=== PATIENT | female | born 1990 | race Caucasian/White ===

== ENCOUNTER 2019-08-22 16:17 | Inpatient (IN) | payer BC, SELFPAY ==
[2019-08-22 16:29] VITALS: BP 96/59; PULSE 69; RESP 18; TEMP 36.8; O2SAT 98
--- NOTE | 2019-08-22 16:42 | W.ED.GENAD ---
Discharge Plan Disposition Patient Disposition: [facility] INPATIENT Discharge Details Chief Complaint: Orthopedic Clinical Impression: Closed fracture of shaft of right tibia and fibula Admit Date/Time: 08/22/19 18:50 Admit Provider: Camacho Elena Attending Provider: Camacho Elena Primary Care Provider: Hannah,[facility] ED Provider: Misael Saunders Medical Decision Making Patient is a 29-year-old female presents to the emergency department status post skiing injury. She has what appears to be a mid to tibia fracture deformity. X-rays/Ct scan confirm extensive comminuted, minimally displaced spiral fracture extending from the mid tibial diaphysis through the distal metaphysis. There is also a spiral fracture involving the proximal fibula. Discussed findings with the family and patient and she would prefer to have surgery here and not wait until going back to [place]. Call placed to Dr. Elena. He will accept patient in most likely perform surgery tomorrow. Patient placed in a posterior stirrup splint. HPI General Date/Time Provider Initiated Documentation: 08/22/19 16:33. HPI Narrative: Patient is a 29-year-old female who states that she had a low-speed fall while skiing. Her right ski stayed in place and she twisted her right leg. She states that she is had severe pain in the middle aspect of her mccullough since the fall. She is been unable to ambulate. She denies any numbness or tingling of the toes. No hip or knee pain. No other identifiable injuries. She denies any LOC or head injury. She was helmeted at the time of the fall. Related Data Allergies Allergy/AdvReac Type Severity Reaction Status Date / Time No Known Allergies Allergy Unverified 08/22/19 16:33 General Stated Complaint: Orthopedic JAYLEEN: 3 Review of Systems Constitutional Constitutional: Denies weakness ENT Ears, Nose, Mouth, and Throat: Denies neck pain Musculoskeletal Musculoskeletal: Denies back pain, Reports deformity, Denies joint swelling, Denies limited range of motion, Denies neck pain, Denies numbness and Denies tingling Neurologic Neurologic: Denies numbness, Denies sensory deficit, Denies tingling, Denies paresthesias and Denies weakness Hematologic/Lymphatic Hematologic/Lymphatic: Denies easy bleeding and Denies easy bruising [facility] Social History (Reviewed 08/22/19 @ 16:44 by JOANNA Almanza Smoking/Tobacco Use Status: Former Tobacco Use Drug use: Never Do you feel safe at home: Yes Exam Const General: cooperative, healthy appearing and comfortable Orientation: alert, awake and oriented x3 HENMT Head: normal to inspection, normocephalic and atraumatic General nose exam: external nose normal Neck Neck: normal visual inspection, full ROM and no lymphadenopathy Chest Chest: normal inspection of the chest and normal palpation of entire chest wall Resp Effort & Inspection: normal respiratory effort and able to speak in complete sentences Cardio Pulses: posterior tibial pulses present, dorsalis pedis pulses present and normal peripheral pulses GI Inspection: normal to inspection Skin Trauma: no lacerations or abrasions Neuro General: normal light touch, pain and propioception Extrem Right lower extremity: lower leg Details: tenderness Location: of the midshaft tibia, ecchymosis and deformity Location: of the mid lower leg Course Vital Signs Vital signs: Vital Signs Temperature 36.8 C 08/22/19 16:29 Pulse 69 08/22/19 16:29 Respiratory Rate 18 08/22/19 16:29 Blood Pressure 96/59 L 08/22/19 16:29 Pulse Oximetry 98 08/22/19 16:29 Temperature 36.8 C 08/22/19 16:29 Pulse 69 08/22/19 16:29 Respiratory Rate 18 08/22/19 16:29 Blood Pressure 96/59 L 08/22/19 16:29 Blood Pressure Position Supine 08/22/19 16:29 Pulse Oximetry 98 08/22/19 16:29 Oxygen Delivery Method Room Air 08/22/19 16:29 Oxygen Flow Rate 0 08/22/19 16:29 Pain Level 5 08/22/19 16:29 Procedures Orthopedic Splinting/Casting Injury #1: Side: right Lower Extremity Injury Location: lower leg Lower Extremity Immobilizer: posterior splint and stirrup splint
[2019-08-22] MEDS: HYDROmorphone 2 MG/ML VIAL 0.5 MG IVP ×3 (16:57→18:38)
[2019-08-22] MEDS: Ondansetron 4 MG/2 ML VIAL IVP (16:58)
--- NOTE | 2019-08-22 17:18 | DI.RAD_ITS ---
EXAM: XR TIB/FIB RT INDICATION: severe mid tib pain s/p fall. NV intact. COMPARISON: No exams were available for comparison TECHNIQUE: 2D digital imaging was performed. FINDINGS: There is a mildly displaced fracture of the proximal fibula. There is a comminuted spiral fracture o f the mid to distal tibia which shows mild displacement but no significant angulation. The ankle mor tise does not appear widened. No talar dome defect is seen. There is no definite extension of the d istal tibial fracture to the articular surface. There is no gross evidence of a distal femoral or ti bial plateau fracture. IMPRESSION: Mildly displaced spiral fracture of the mid to distal tibia. Proximal fibular fracture.
--- NOTE | 2019-08-22 17:37 | DI.VRAD_ITS ---
PROCEDURE INFORMATION: Exam: XR Right Tibia and Fibula Exam date and time: 08/22/2019 5:19 PM Age: 29 years old Clinical indication: Injury or trauma; Fall; Initial encounter; Fracture, stress and fracture, traumatic; Fibula and tibia; Right; Other: Not specified; Additional info: Skiing accident, PT was in cardboard/styrofoam stabilizing device TECHNIQUE: Imaging protocol: XR Right tibia and fibula. Views: 2 views. COMPARISON: No relevant prior studies available. FINDINGS: Bones/joints: Spiral fracture through the proximal fibular diaphysis with mild 2-3 mm lateral and ventral displacement of the distal fracture fragment. Extensive comminuted spiral fractures extending from the mid tibial diaphysis through distal metaphysis without evidence of intra-articular extension. There is mild 2-3 mm dorsal displacement of the distal fracture fragments. Joint spaces are maintained. Soft tissues: Normal. IMPRESSION: 1. Extensive comminuted, minimally displaced spiral fractures extending from the mid tibial diaphysis through distal metaphysis without evidence of intra-articular extension. 2. Spiral fracture through the proximal fibular diaphysis with mild 2-3 mm lateral and ventral displacement of the distal fracture fragment. Dictated and Authenticated by: Sarthak Marion MD. Ordering:JUAN ALBERTO Douglas MD
[2019-08-22] MEDS: diazePAM 10 MG/2 ML SYR 2.5 MG IVP (17:44)
--- NOTE | 2019-08-22 19:06 | DI.CT_ITS ---
EXAM: CT LOWER EXTREMITY RT WO CLINICAL HISTORY: Comminuted tib/fib fracture TECHNIQUE: Noncontrast. The knee and proximal tibia and fibula are not included on the exam. Image s were performed from the upper tibia and fibula through the ankle. COMPARISON: XR TIB/FIB RT from 08/22/2019 FINDINGS: There is a comminuted spiral fracture through the mid to distal tibia. There is mild displacement o f fracture fragments without significant angulation. There is no visible extension to the articular surface. The distal tibia and talar dome appear intact. No hematoma is seen. IMPRESSION: Comminuted spiral fracture of the mid to distal tibia without intra-articular extension.
--- NOTE | 2019-08-22 19:25 | OCONE_ITS ---
Date of service: 08/22/19 Time of Service: 19:25 History of Present Illness History of Present Illness Chief Complaint: Right leg pain because of fracture Narrative: Is a 29-year-old white female who was visiting from the [place] area and skiing at [employer] this afternoon when she had a low velocity fall. She basically her ski caught and twisted out and she fell over onto the snow. She had immediate severe pain from the mid tibia down. She was placed in a cardboard box splint on the [place] and transferred to [facility]. At [facility] she was found to be neurovascular intact. There were no breaks in the skin. X-rays of the tibia showed a comminuted but well aligned fracture of the right tibia begins at midshaft and extends distally ending the fibula is mildly comminuted and fractured about 3 inches from the proximal and. No significant angulation is seen. Patient was advised that she could be splinted and go back home to [place] for definitive treatment with a closed intramedullary nailing of the tibial fracture. She preferred to stay and have it done here at [facility] by me. I discussed with her the indications for the surgery the risk and complications of the procedure and expected postoperative course. I felt that she needed a preoperative CT scan of the distal tibia to make sure that fracture does not extend to the articular surface of the distal tibia. If it does extend to the articular surface would have to plan to fix that fracture first before nailing. Assessment and Plan Assessment and plan (1) Closed fracture of shaft of right tibia and fibula: Status: Acute Assessment and plan: Assessment: Closed fracture right tibia and fibular shafts. The tibial fracture starts mid tibia and ends proximal to the ankle joint. There is no extension of the fracture into the ankle joint. Fracture is well aligned and not shortened. There is fair amount of comminution. This fracture needs closed intramedullary nailing with proximal and distal locking as optimal treatment. I discussed this with Bere as well as risks and co mplications expected postoperative course. She wants to proceed tomorrow to do this. Plan: Today in the ER remove the block splint and applied a stockinette to the right leg. I then placed her in a Aircast fracture walking brace to splint the fracture. I written admission orders for pain management tonight. Would plan on proceeding with a closed intramedullary nailing of her fracture right tibia tomorrow under general anesthesia. Review of Systems Narrative: She takes no medications. She has no known allergies. Said no prior surgeries. All systems reviewed & are unremarkable except as noted in HPI and below PFSH Social History Smoking/Tobacco Use Status: Former Tobacco Use Drug use: Never Do you feel safe at home: Yes Exam Narrative Exam Narrative: No breaks in the skin are noted in the right leg. On clinical inspection the leg looks aligned. Her right foot is warm and sensate. She has good dorsalis pedis and posterior tibial pulses. She has normal sensation to her toes. She can actively move her toes fully on command. AP and lateral x-rays of the right tibia are obtained. The fractures are well aligned. There is no significant angulation seen. There is no shortening seen. The tibial fracture is comminuted starting about mid tibia just below the isthmus. Probably an inch and a half proximal to the ankle joint the fracture ends based upon the my interpretation of the plain films. Fibula is fractured proximally about 3 inches from the proximal tip of the fibula. CT scan is obtained of the right lower leg.. The CT scan confirms my interpretation of the plain films. The fracture exits posteriorly probably an inch or more proximal to the ankle joint. There is no extension of the fracture lines into the ankle joint. No shortening no significant angulation seen. Results Last Vital Signs Temp 36.8 C 08/22/19 16:29 Pulse 69 08/22/19 16:29 Resp 18 08/22/19 16:29 BP 96/59 L 08/22/19 16:29 Pulse Ox 98 08/22/19 16:29
--- NOTE | 2019-08-22 19:29 | DI.VRAD_ITS ---
PROCEDURE INFORMATION: Exam: CT Right Lower Extremity Without Contrast; Lower Leg Exam date and time: 08/22/2019 7:07 PM Age: 29 years old Clinical indication: Other: Comminuted tib/fib fracture TECHNIQUE: Imaging protocol: CT of the Right lower extremity without contrast was performed. Exam focused on the lower leg. COMPARISON: XR TIB/FIB RT 08/22/2019 5:18 PM FINDINGS: Bones/joints: Known proximal fibular fracture is beyond the field of view. Comminuted transverse and spiral fracture through the mid-tibial diaphysis and extending through the posterior and medial aspect of the distal tibial metaphysis with cortical disruption along the tibiofibular syndesmosis. The proximal transverse fracture components extend through both the medial and lateral cortex. There is minimal displacement and no significant angulation of the comminuted fracture fragments. A single small intramedullary fracture fragment is identified (series 4, image 75). No intra-articular extension. No definite widening across the tibiofibular syndesmosis. Ankle joint is maintained. Soft tissues: Normal. IMPRESSION: 1. Transverse and spiral fracture of the mid-tibial diaphysis through distal metaphysis with cortical disruption along the tibiofibular syndesmosis but no intra-articular extension across the tibial plafond. There is minimal displacement and no significant angulation of the comminuted fracture fragments. 2. No definite widening across the interosseous membrane. Ankle joint is maintained. 3. Known proximal fibular fracture is outside the field of view. Dictated and Authenticated by: Sarthak Marion MD. Ordering:JUAN ALBERTO Douglas MD
[2019-08-22 19:44] VITALS: BP 115/55; PULSE 78; TEMP 37.5; O2SAT 96
[2019-08-22 20:18] VITALS: BP 117/67; PULSE 83; RESP 18; TEMP 37.7; O2SAT 93
[2019-08-22] MEDS: DEXTROSE 5%-0.9% SALINE 1,000 ML 60 ML IV (20:57)
[2019-08-22] MEDS: Normal Saline Flush 10 ML SYR IVP ×2 (20:57→21:23)
[2019-08-22] MEDS: oxyCODONE-CR 10 MG TABCR PO (20:58)
[2019-08-22] MEDS: MORPHine 10 MG/ML VIAL IVP (21:17)
[2019-08-22] MEDS: Ketorolac 30 MG/ML VIAL IVP (21:18)
[2019-08-22 23:17] VITALS: BP 109/68; PULSE 92; RESP 17; TEMP 37.2; O2SAT 99
[2019-08-23] VITALS (13 sets, daily range): BP systolic 94–106; BP diastolic 57–75; PULSE 58–83; RESP 12–18; TEMP 36.6–37.7; O2SAT 94–100
[2019-08-23] MEDS: Normal Saline Flush 10 ML SYR IVP ×5 (00:50→23:48)
[2019-08-23] MEDS: MORPHine 10 MG/ML VIAL IVP ×2 (00:50→07:16)
[2019-08-23] MEDS: Ketorolac 30 MG/ML VIAL IVP ×4 (03:37→23:47)
[2019-08-23 08:00] LABS: HCT 37.4 % (36.0-46.0); HGB 12.3 g/dL (12.0-15.5); Mean Corp. HGB Concentration 32.9 g/dL (32.0-36.0); Mean Corpuscular Hemoglobin 30.8 pg (27.0-33.0); Mean Corpuscular Volume 93.7 fL (80-95); Mean Platelet Volume 9.9 fL (8.0-11.0); Platelet Count 305 x1000/uL (130-400); RBC 3.99 m/cumm (4.00-5.20); RBC Distribution Width 11.6 % (11.7-14.6)
[2019-08-23 08:20] LABS: HCG Qual (Urine) Negative
--- NOTE | 2019-08-23 09:14 | PDOC.CMIN ---
- If Service Date Differs Date of service: 08/23/19 Time of Service: 09:14 Care Management Initial Assess REASON FOR HOSPITALIZATION:: Fracture of the right tibia and fibula closed PAST MEDICAL HISTORY/PAST SURGICAL HISTORY:: No significant past medical history PREVIOUS FUNCTIONAL STATUS/SOCIAL/FAMILY SUPPORTS:: Per significant other patient is independent with ADLs, transportation, and has family support. Bere was in [place] for a ski trip, when she was injured. CURRENT FUNCTIONAL STATUS:: Bere is currently in the OR having repair of her fractured tibia and fibia. CM met with significant other in the room, will need to follow-up with patient when she returns from the OR. ADVANCE DIRECTIVES:: Not on file-we will offer forms once patient returns from the OR and is medically stable Has patient been provided with information about the portal?: No Did the patient sign up for the portal?: No CODE STATUS:: Full Code INSURANCE COVERAGE / FINANCIAL ISSUES:: [facility] CURRENT HOME/COMMUNITY SERVICES/EQUIPMENT:: None at this time PRIMARY CARE PHYSICIAN:: No current provider local or in [place], will establish care with orthopedic provider in [place] and will need all records faxed to practice. PATIENT/FAMILY EDUCATION NEEDS:: Discharge education, limitations, follow-up plan of care, asked me 3 and self-management. ANTICIPATED BARRIERS TO DISCHARGE:: None identified at this time TRANSPORTATION:: Via private car with significant other at time of discharge PLAN:: Bere is in the OR at time of CM's visit for repair of tib and fib fracture. Significant other states that they will transport back to [place] when she is medically cleared. Needs to be determined, significant other will provide name of a provider in [place] to have records faxed to. CM to continue to provide support discharge planning to patient and family.
[2019-08-23] MEDS: Lactated Ringers 1,000 ML 30 ML IV ×2 (12:40→15:00)
--- NOTE | 2019-08-23 13:58 | DI.RAD_ITS ---
EXAM: XR TIB/FIB RT CLINICAL HISTORY: RIGHT TIB/FIB FX. TECHNIQUE: 2D and realtime digital imaging was performed. Fluoroscopy was provided in the OR for Dr Lis Elena. COMPARISON: XR TIB/FIB RT from 08/22/2019 FINDINGS: Hard copy images show placement of an intramedullary denise through the tibia for fracture fixation. Fluoro Time: 246.2 seconds
[2019-08-23] MEDS: Bupivacaine 0.5% Pres-Free 30 ML VIAL (15:06)
--- NOTE | 2019-08-23 15:19 | DI.RAD_ITS ---
EXAM: XR TIB/FIB RT INDICATION: Check reduction and hardware post-op in RR. COMPARISON: XR TIB/FIB RT from 08/22/2019 TECHNIQUE: 2D digital imaging was performed. FINDINGS: An intramedullary denise is seen through the tibia for fracture fixation. The fracture alignment is yobani tomic. The proximal fibular fracture shows improved alignment. There is no ankle mortise widening. There is residual postsurgical air in the soft tissues. A posterior splint is in place.
--- NOTE | 2019-08-23 16:23 | PT.INNT ---
Date of service: 08/23/19 Time of Service: 16:23 PT Notes Visit Reasons: FRACTURE R TIBIA AND FIBULA,CLOSED Referral received on 08/23/2019 for physical therapy evaluation and management of this 29-year-old patient S/P closed IM nailing of L mid tibial shaft and fibular fracture. Patient is still in the PACU and will be evaluated first thing tomorrow morning as ordered. Thank you very much for this referral. Renetta Card PT, DPT, CLT [facility] In[facility] at [facility]
--- NOTE | 2019-08-23 17:20 | ROE_ITS ---
DATE OF PROCEDURE: August 23, 2019 PREOPERATIVE DIAGNOSIS: Closed fracture of the right tibia and fibula shafts. POSTOPERATIVE DIAGNOSIS: Same. PROCEDURE: Closed locked intramedullary nailing fracture left tibial shaft. ANESTHESIA: General, Cirilo Rg CRNA SURGEON: Camacho Elena M.D. SIDE DOOR WORKER: Micheal Delgado INDICATIONS: This is a 29-year-old white female from [place] who sustained a comminuted closed fracture of the right tibia and fibula shafts yesterday in a ski accident at [facility]. She was seen in the Emergency Room and evaluated and I was consulted. I obtained a CT scan that confirmed t hat the fracture did not extend to the articular surface of the ankle. I recommended closed intramed ullary nailing of her fracture as optimum treatment. The risks and complications of the procedure we re explained to the patient in detail preoperatively and she wished to have me proceed today with the surgery. She is anxious to travel back home to the [place] area. PROCEDURE: The patient was taken to the operating room on 08/23/2019. She was placed supine on the o perating table and a general anesthetic was administered. A roll was placed under her right hip and the right lower extremity was prepped from mid-thigh to toes and draped free in the usual sterile fas hion. The leg was flexed on a bone foam pillow in preparation for so-called semi-extended nailing pr [place]. An incision was made beginning at the superior pole of the patella lateral and carried down on the la teral side of the patellar tendon to the tibial tubercle. Subcutaneous bleeders were cauterized. I then incised the retinaculum and length of the incision. I used an elevator to help me gain access t o the retro patellar tendon space. With C-arm image intensification guidance, I was able to position a guidewire at the appropriate starting point for an IM nailing. The guide pin was placed at the le hieu of the lateral tibial spine on the AP view and on the lateral view it was parallel to the anterio r cortex of the tibia. One-stop reamer was then used over the guide pin to ream for the proximal por tion of the nail. A flexible guide pin, bulb-tipped, was then passed down the tibial shaft across th e comminuted fracture fragments and down to the distal epiphyseal scar of the tibia. Good position i n the medullary canal was confirmed on both AP and lateral views with the C-arm. At this point seria l reaming was performed up to 11 mm diameter for passage of a 9 mm diameter nail. The guide pin was measured and 315 mm length was found to be the appropriate length for the nail. The aiming device wa s attached to the nail and the nail was then inserted over the guidewire across the fracture site and down to the distal epiphyseal scar of the tibia. The C-arm was utilized to visualize the fracture a s the nail was passed through the fracture site and the comminuted pieces. None of the pieces displa laney. The guide pin was removed. Using the aiming arm for the nail, two proximal screws were inserte d for proximal locking. Two screws were inserted distally using a freehand technique, one from anter ior to posterior and one from medial to lateral. The incisions were irrigated with saline solution a nd then they were infiltrated with 0.5% Marcaine solution. The distal stab wounds for the interlocking screws were approximated with subcuticular #4-0 Monocryl. The stab wounds for the proximal interlocking screws were also closed with subcu Monocryl and Steri -Strips. There was a small laceration of the synovium that occurred during the initial exposure and this was closed with a running interlocked #3-0 Vicryl suture material. The retinaculum was repaired with a running interlocked #2-0 Vicryl suture. The skin and subcu were then approximated with a sub cuticular suture of #4-0 Monocryl, supplemented with Steri-Strips. The wound was dressed with Xerofo rm gauze, sterile gauze 4x4's, ABD pad was placed over the lateral knee incision and was held in plac e with a 4-inch Kerlix. I then applied a Harry compressive dressing from toes to about mid-thigh. I then applied over the Harry compressive dressing a posterior fiberglass splint that ended just proxi mal to the knee to allow flexion of the knee. The splint was applied with 6-inch RUSSELL bandages. The patient's anesthesia was reversed without complications. Estimated blood loss was 75 cc's. The renae ent tolerated the procedure well and was discharged to recovery in good condition.
[2019-08-23] MEDS: DEXTROSE 5%-0.9% SALINE 1,000 ML 125 ML IV (17:27)
[2019-08-23] MEDS: oxyCODONE-CR 10 MG TABCR PO (19:59)
[2019-08-24] MEDS: DEXTROSE 5%-0.9% SALINE 1,000 ML 125 ML IV ×2 (01:12→10:12)
[2019-08-24 04:05] VITALS: BP 96/58; PULSE 54; RESP 16; TEMP 36.8; O2SAT 100
[2019-08-24] MEDS: Normal Saline Flush 10 ML SYR IVP ×3 (06:11→18:23)
[2019-08-24] MEDS: Ketorolac 30 MG/ML VIAL IVP ×3 (06:11→18:22)
[2019-08-24] MEDS: Acetaminophen 325 MG TAB 650 MG PO (07:37)
[2019-08-24] MEDS: oxyCODONE-CR 10 MG TABCR PO ×2 (07:39→19:42)
[2019-08-24 08:04] VITALS: BP 102/55; PULSE 64; RESP 18; TEMP 37.1; O2SAT 99
[2019-08-24 11:07] VITALS: BP 100/64; PULSE 65; RESP 20; TEMP 36.5; O2SAT 99
--- NOTE | 2019-08-24 11:48 | IN_ITS ---
Date of service: 08/24/19 Time of Service: 09:18 PT Notes Visit Reasons: FRACTURE R TIBIA AND FIBULA,CLOSED Physical Therapy Inpatient Initial Evaluation Date: 08/24/2019 Referring Doctor: Camacho Elena M.D. PT Orders: PT CONSULT: s/p ortho surgery Precautions: Fall. Standard. Activity as tolerated. FWB as tolerated R leg. Patient Profile/Admitting Diagnosis: Pt is a 29-year-old female that presented to the ER following a low velocity fall while [place]. She was diagnosed with a closed transverse and spinal fracture of the mid-tibial diaphysis through the distal metaphysis of the tibia and mildly displaced spiral fracture of the mid to distal tibia. Pt presents status post closed locked IMN on post operative day 1. 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 Railings on both sides of the stairs, however, notes that the stairs are wide. notes that they are able to stay with his parents on the first floor if necessary. Equipment Owned/DME: None Subjective: Pt reports that she is feeling good and only experiencing a small amount of pain, but had received her medication prior to her PT evaluation. Yobani connolly reports that they have a [address] home and the pt will be able to ride with her leg propped up. Objective: General Observation: IV line in RUE. Mental Status: alert and oriented x 4 Pain: 2/10 at rest ROM: Right Upper Extremity: Shoulder Flexion WFL. Shoulder abduction WFL. Elbow flexion WFL. Wrist flexion WFL. Opening and closing of hand WFL. Left Upper Extremity: Shoulder Flexion WFL. Shoulder abduction WFL. Elbow flexion WFL. Wrist flexion WFL. Opening and closing of hand WFL. Right Lower Extremity: Hip flexion WFL. Hip abduction WFL. Knee flexion NT. Ankle dorsiflexion NT. Ankle plantarflexion NT. Left Lower Extremity: Hip flexion WFL. Hip abduction WFL. Knee flexion WFL. Ankle dorsiflexion WFL. Ankle plantarflexion WFL. Strength: Right Upper Extremity: Shoulder flexors 4+/5. Shoulder abductors 5/5. Elbow flexors 5/5. Elbow extensors 5/5. Cold Rolling Machine Setter strong. Left Upper Extremity: Shoulder flexors 4+/5. Shoulder abductors 5/5. Elbow flexors 5/5. Elbow extensors 5/5. Cold Rolling Machine Setter strong. Right Lower Extremity: Hip flexors 3-/5. Hip abductors 3-/5. Knee flexors 3-/5. Knee extensors 3-/5. Ankle dorsiflexors 3-/5. Ankle plantarflexors 3-/5. Left Lower Extremity: Hip flexors 5/5. Hip abductors 5/5. Knee flexors 5/5. Knee extensors 5/5. Ankle dorsiflexors 5/5. Ankle plantarflexors 5/5. Sensation: Intact as to pain and pressure on bilateral lower extremities. Bed Mobility/Transfers: Rolling SBA Supine to sit SBA Sit to supine SBA Sit to stand CGA Stand to sit CGA Bed to chair CGA Chair to bed CGA Gait: Pt was able to ambulate 50 feet WBAT using a front-wheeled walker. CGA by PT with wheelchair follow of PT student. Pt required four standing rest breaks and required one seated rest break due to fatigue in leg and increased pain. She was able to ambulate 5 feet + 30 feet WBAT using bilateral axillary crutches. CGA by PT and wheelchair follow by pt?s . Balance: Static Sitting: Normal Dynamic Sitting: Normal Static Standing: Fair Dynamic Standing: Fair Special Tests: Mobility Limitations Standardized Measure [facility] AM-PAC 6 clicks Basic Mobility Inpatient Short Form: Raw Score: 20 CMS Score: 36% deficit Informed Consent/Education: Patient instructed in purpose of PT consult and plan of care. Assessment: Pt is a 29-year-old female that presented to the ER following a low velocity fall while [place]. She was diagnosed with a closed transverse and spinal fracture of the mid-tibial diaphysis through the distal metaphysis of the tibia and mildly displaced spiral fracture of the mid to distal tibia. Pt presents status post closed locked IMN. She presents with impairment level findings with functional limitations. She initially appeared to be apprehensive about putting weight onto her R LE and gradually began to apply more weight as she gained confidence with walking with the axillary crutches. Pt would continued to benefit from skilled physical therapy for transfer into and out of a vehicle, gait training and stair negotiation to improved functional mobility and facilitate a smooth transition to home. Patient presents with clinical signs and symptoms consistent with current/admitting diagnoses that have resulted to mobility limitations, gait instability, generalized weakness, and impairment of motor control as demonstrated by the following impairment level findings: 1. Decreased strength to R LE major muscle groups 2. Impaired standing balance 3. Impaired activity tolerance 4. Limitation of joint range of motion in R LE Impairments are contributing to the following functional limitations: 1. Dependent bed mobility skills 2. Increased dependence with transfers 3. Inability to safely ambulate without assistive device and physical assistance 4. Increase completion time for mobility ADL performance 5. Increased fall risk 6. Inability to negotiate steps alone safely Patient is assessed [place] a [id number] moderate complexity based on the following: History: Pt is a 29-year-old female that presented to the ER following a low velocity fall while [place]. She was diagnosed with a closed transverse and spinal fracture of the mid-tibial diaphysis through the distal metaphysis of the tibia and mildly displaced spiral fracture of the mid to distal tibia. Pt presents status post closed locked IMN. She presents with impairment level findings and functional limitations. AM-PAC raw score of 20 with 36% deficit. Examination: Demonstrable impairment in strength, balance, and range of motion with underlying impairments and functional limitations as documented above Presentation: Evolving Decision Makin moderate complexity Goals: Goals X1 week 1. Supine-Sit independent 2. Sit-Supine independent 3. Sit-Stand independent 4. Stand-Sit independent 5. Bed-Chair independent 6. Chair-Bed independent 7. Independent gait on level surface with use of least restrictive device for at least 300 feet without report of pain nor dyspnea 8. Min A stair negotiation while holding onto unilateral rail and Min A by for at least 15 steps without report of increased pain nor dyspnea 9. Independent with home exercise program 10. Good static and dynamic standing balance/tolerance Plan of Care/Treatment Plan: 1-2x/day, 7 days/week x 1 week. Plan of care has been reviewed with the FINANCIAL REPORTING ANALYST providing the service under Physical Therapy direction. Initiate Physical Therapy intervention for strengthening, bed mobility, transfers, gait, stairs, balance training, use of assistive device. DISCHARGE RECOMMENDATIONS: Discharge to home when medically cleared with recommendations for outpatient physical therapy for improved mobility, strength, and balance. Recommend use of bilateral axillary crutches for negotiation of sta irs and front-wheeled walker for ambulation in the home. TREATMENT CODE/TIME: 33786 x 45 minutes beginning at 9:18 A.M. Thank you very much for this referral. Akila Couch, SPT Doctor of Physical Therapy Student [facility] Supervision provided by: Renetta Card PT, DPT, CLT [facility] [place], [place]
--- NOTE | 2019-08-24 13:30 | PT.INTREAT ---
Date of service: 08/24/19 Time of Service: 13:30 PT Notes Visit Reasons: FRACTURE R TIBIA AND FIBULA,CLOSED 08/24/19 SUBJECTIVE: Pt stating she is doing okay this afternoon. She is anxious to try the stairs. She plans on leaving early tomorrow morning for their [address] OBJECTIVE: Supine in bed. Agreeable to PT treatment. TRANSFERS Supine to sit: I Sit to supine: I Sit to stand: SBA Stand to sit: SBA GAIT Device: Bilateral axillary crutches Weight bearing: WBAT R LE Assist: CGA Distance: 50'x2 Deviation: Stand rest break 2 x due to UE fatigue. STAIR: 1 flight up and down, 1 rail, 1 axillary crutch, CGA ASSESSMENT: Good tolerance to stair management this afternoon. She is more confident with her crutches and I fit her with a pair to take with her tomorrow morning. Both her and her feel confident to be able to get into their apartment when they get home. PLAN: Continue per PT's POC. Treatment time: 23' [id number] Kassidy Johnson, SPECIALIST ICU
--- NOTE | 2019-08-24 14:01 | PHARADMIT ---
Admission Pharmacy Clinical Review fracture R tibia and fibula, closed Code Status Full Code Current Weight 56.699 kg Renally Cleared and Narrow Therapeutic Index Meds no labs QTc Value / Action Taken none BP Control, Fever BP 100/64 afebrile Electrolytes reviewed no labs DVT Prophylaxis none Opiate Usage / Scheduled Bowel Regimen Ordered dave and prn/none Plt/SCr for Heparin / Enoxaparin plt 305 SCr-no labs INR for Warfarin n/a H/H stable, WBC/Bands h/h 12.3/37.4 wbc 11 Antibiotic appropriateness none Cultures and Sensitivities none Surgical ABX d/c within 24 hr yes DM control / Insulin Dosing not done Heart Failure (Check EF%) (RUSSELL's, B-Block, Diuretics) none IV to PO Switch n/a Home Meds Reviewed no home meds listed Home Meds Not Ordered no home meds listed Comments
--- NOTE | 2019-08-24 14:37 | PGE_ITS ---
Date of Service Date of service: 08/24/19 Time of Service: 14:37 Assessment and Plan Assessment and plan (1) Closed fracture of shaft of right tibia and fibula: Status: Acute Assessment and plan: Assessment: Stable and progressing well at 24 hours postop closed intramedullary nailing of a fracture of the right tibia. I think she should be ready to travel back home to [place] tomorrow. She will get some more therapy this afternoon with PT to go up and down stairs. We will get another session on the stairs tomorrow morning to help with her mobility. Plan: DC IV fluids. We will leave the IV in as a half In case she needs additional IV meds. We will continue with the Toradol and OxyContin. Plan discharge home tomorrow morning. Should have DVD with her x-rays on it to take with her for when she follows up with a local orthopedic surgeon in the [place] area. Subjective Subjective Patient reports: feels better and pain is less Interval history since last seen: She says she feels good. She is not had to take any pain medicines other than scheduled medicine as part of her multimodal pain control. She has been up out of bed with PT and actually walked down to the end of the second floor hallway and back. She has not done stairs yet. Says she has 3 flights of stairs to climb to get to her apartment in [place]. She like to be a little bit more mobile with crutches before going home. Only mild amount of pain. Denies any numbness in her toes. Exam Narrative Exam Narrative: She is afebrile vital signs stable. Toes of her right foot are pink and warm. She is able to actively flex and extend her toes without difficulty and without pain. She has good sensation to the toes of her right foot. She has been out of bed with PT and is walked to the into the hallway on the second floor and back. There is supposed to try her on stairs later today. She is not taken any pain medicines other than the scheduled Toradol and OxyContin. She is eating and drinking well. Objective Objective Clinical Data: Vital Signs Temperature 36.5 C 08/24/19 11:07 Temperature Source Tympanic 08/24/19 11:07 Pulse 65 08/24/19 11:07 Pulse Rhythm Regular 08/24/19 07:55 Respiratory Rate 20 08/24/19 11:07 Respiratory Effort 08/24/19 07:55 Respiratory Depth Normal 08/24/19 07:55 Respiratory Pattern Normal 08/24/19 07:55 Blood Pressure 100/64 08/24/19 11:07 Blood Pressure Position Supine 08/22/19 16:29 Pulse Oximetry 99 08/24/19 11:07 Respiratory End-tidal CO2 42 08/23/19 15:56 Oxygen Delivery Method Room Air 08/24/19 11:07 Oxygen Flow Rate 0 08/24/19 11:07 Pain Level 2 08/24/19 12:42 Intake & Output 08/23/19 08/24/19 08/24/19 23:59 11:59 23:59 Intake Total 3070 / 3070 2118.75 / 2358.75 240 / 2358.75 Output Total 375 / 875 Balance 2695 / 2195 2118.75 / 2358.75 240 / 2358.75 Intake: IV 2270 / 2270 1968.75 / 1968.75 Oral 800 / 800 150 / 390 240 / 390 Output: Urine 300 / 800 Estimated Blood Loss 75 / 75 Other: Urine Color Yellow Urine Appearance Clear Urine Odor Normal Comment VOIDED QS IN PACU Emesis Description None Voiding Methods Bedside Commode Bedside Commode Bedside Commode Laboratory Results WBC 11.00 k/cumm (4.4-10.8) H 08/23/19 07:45 RBC 3.99 m/cumm (4.00-5.20) L 08/23/19 07:45 Hgb 12.3 g/dL (12.0-15.5) 08/23/19 07:45 Hct 37.4 % (36.0-46.0) 08/23/19 07:45 MCV 93.7 fL (80-95) 08/23/19 07:45 MCH 30.8 pg (27.0-33.0) 08/23/19 07:45 MCHC 32.9 g/dL (32.0-36.0) 08/23/19 07:45 RDW 11.6 % (11.7-14.6) L 08/23/19 07:45 Plt Count 305 x1000/uL (130-400) 08/23/19 07:45 MPV 9.9 fL (8.0-11.0) 08/23/19 07:45 Urine HCG, Qual Negative 08/23/19 07:49
--- NOTE | 2019-08-24 15:08 | W.NUTCONSULT ---
Date of service: 08/24/19 Time of Service: 15:08 Nutritional Consult ASSESSMENT: 29 year old female with ski accident leading to closed fracture of tibia and fibia. Following regular meal plan with adequate intake. BMI wnl. Not considered at nutritiona risk. Time Spent in Nutritional Counseling and Treatment: 0 time spent face to face
--- NOTE | 2019-08-24 15:24 | CHAPLAIN ---
Bere was resting in bed and her boyfriend was with her when I visited. She told me about her skiing accident and her boyfriend driving her to the ER. She had surgery yesterday. She expects to go home, back to [place] tomorrow. Their truck (of van) is outfitted in the back for sleeping as they often stay in there instead of in hotels when traveling. 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 Bere said all the staff members she has met at [facility] have been very kind and she complimented the care she has received.
--- NOTE | 2019-08-24 15:42 | PDOC.CMPRO ---
- If Service Date Differs Date of service: 08/24/19 Time of Service: 15:42 Care Management Progress Note S/O: Bere was sitting up in her bed when CM met with her. She was pleasant and engaged in conversation. She reported that her pain has been well controlled. She reported that she does not have a local (to her) PCP, but her made a suggestion to refer her to his PCP office. CM called and spoke with [facility], who stated that as she is not yet a patient, we could not fax documents, and they could not refer her to a local Ortho either. CM told the pt, and supplied her with the fax number if they need to send her paperwork to sign. Bere and her also expressed that they have a [address] which they are nervous about and would like to leave early in the day if possible. PT will be working with her to maneuver stairs easier this afternoon and tomorrow morning prior to discharge. CM initiated set up for the Portal, at Bere's request. CM will continue to follow. A: Bere is a 29 year old female admitted to [facility] on 08/22/2019 with a Fractured R Tibia and Fibula. P: Bere has had her Tibia and Fibula fracture repaired by Dr. Elena. Anticipate she will return home to [place] when cleared by MD and PT. She will follow up with a new local PCP and Ortho in [place]. CM will fax records to her new PCP, once requested. Her will drive her home via private vehicle. She is agreeable to the plan. CM will continue to follow.
[2019-08-24 18:18] VITALS: BP 102/64; PULSE 70; RESP 18; TEMP 36.7; O2SAT 98
[2019-08-24 23:39] VITALS: BP 105/67; PULSE 67; RESP 17; TEMP 37.2; O2SAT 97
[2019-08-25 00:05] VITALS: BP 113/72; PULSE 75; RESP 16; TEMP 37.5; O2SAT 95
[2019-08-25 03:50] VITALS: BP 98/61; PULSE 69; RESP 16; TEMP 37.2; O2SAT 95
[2019-08-25] MEDS: Ketorolac 30 MG/ML VIAL IVP ×2 (06:46)
[2019-08-25] MEDS: Normal Saline Flush 10 ML SYR IVP ×2 (06:47)
[2019-08-25 07:35] VITALS: BP 112/70; PULSE 66; RESP 20; TEMP 37.2; O2SAT 95
[2019-08-25] MEDS: oxyCODONE-CR 10 MG TABCR PO (07:59)
--- NOTE | 2019-08-25 08:22 | W.PM.DS.N ---
Date of service: 08/25/19 Time of Service: 08:23 DS: Diagnosis Discharge Diagnosis (1) Closed fracture of shaft of right tibia and fibula: Status: Acute Discharge Plan Disposition Patient Disposition: HOME Condition: Good Discharge Details Chief Complaint: Orthopedic Clinical Impression: Closed fracture of shaft of right tibia and fibula Reason For Visit: FRACTURE R TIBIA AND FIBULA,CLOSED Admit Date/Time: 08/22/19 18:50 Admit Provider: Camacho Elena Attending Provider: Camacho Elena [facility]: Mis[facility] Hospital Course Hospital Course: Patient was admitted from emergency room the day of injury 08/22/2019. She was taken the operating room the following day on 08/23/2019 where she underwent a closed intramedullary nailing of her fracture right tibia and fibula. Postoperatively she was mobilized by physical therapy allowing weightbearing as tolerated to the right leg. By 08/25/2019 she had achieved full independence with transfers and ambulation. Her postop pain was well controlled with multimodal pain control strategies. By 08/25/2019 she was comfortable with just oral pain meds. It was felt she had completed the acute care phase her hospitalization by 08/25/2019 and she was therefore discharged home. She will seek follow-up from a local orthopedic surgeon in the [place] area within the next 2 weeks. Home Meds and New Rx's Prescriptions: New ibuprofen 800 mg tablet 800 mg PO TID Qty: 30 RF: 0 hydrocodone-acetaminophen 5-325 mg tablet 1 tab PO Q4H PRN (Reason: pain) Qty: 30 RF: 0 Discharge Instructions Additional Instructions: Elevate R leg when sitting. Don't just let R foot hang down. Crutches to walk. May put as much weight on R foot as your pain allows. May remove the splint and dressings from your R leg tomorrow to shower. You don't have any stitches to remove. You can get the incisions wet. Just let the steri-strips on the incisions fall off by themselves over time. Can leave the incisions uncovered if they are dry and sealed. After showering and drying, put on a cotton athletic stocking and place R leg in the fracture walking brace. The stocking will absorb perspiration. Take ibuprofen 3 times/day as prescribed. Take the hydrocodone for breakthru pain, if needed. Follow up with local orthopaedic surgeon within 2 weeks. Activity:: Activity as Tolerated Equipment/Supplies:: Crutches Diet:: As Tolerated Discharge Orders Discharge Orders: Discharge Order (Routine); Ordered 08/25/19 Ordered By: Camacho Elena DS: Summary Status at Discharge Functional status at discharge: uses cane/walker Overall status at discharge: patient is progressing back to baseline Mental Status: mental status grossly normal Speech and Movement: speech and movement normal Mood: congruent mood Affect: normal affect Exam Psych Mental Status: mental status grossly normal Speech and Movement: speech and movement normal Mood: congruent mood Affect: normal affect DS: Data Vitals/I&O Vitals and I&O: Vital Signs Temperature 37.2 C 08/25/19 07:35 Temperature Source Temporal Artery Scan 08/25/19 07:35 Pulse 66 08/25/19 07:35 Pulse Rhythm Regular 08/25/19 07:21 Respiratory Rate 20 08/25/19 07:35 Respiratory Effort 08/25/19 07:21 Respiratory Depth Normal 08/25/19 07:21 Respiratory Pattern Normal 08/25/19 07:21 Blood Pressure 112/70 08/25/19 07:35 Blood Pressure Position Supine 08/22/19 16:29 Pulse Oximetry 95 08/25/19 07:35 Respiratory End-tidal CO2 42 08/23/19 15:56 Oxygen Delivery Method Room Air 08/25/19 07:35 Oxygen Flow Rate 0 08/25/19 07:35 Pain Level 2 08/25/19 07:59 Intake & Output 08/24/19 08/24/19 08/25/19 11:59 23:59 11:59 Intake Total 2118.75 / 2598.75 480 / 2598.75 Balance 2118.75 / 2598.75 480 / 2598.75 Intake: IV 1968.75 / 1968.75 Oral 150 / 630 480 / 630 Other: Comment pt reported she is using toile to void. did voiding x2 in this shift. Voiding Methods Bedside Commode Toilet [facility] Social History Smoking/Tobacco Use Status: Former Tobacco Use Drug use: Never Do you feel safe at home: Yes
--- NOTE | 2019-08-25 12:06 | INDS_ITS ---
Date of service: 08/25/19 Time of Service: 10:12 PT Notes Visit Reasons: FRACTURE R TIBIA AND FIBULA,CLOSED Inpatient Physical Therapy Discharge Summary Dates: Dates of Service: 08/24/2019 through 08/25/2019 Referring Doctor: Camacho Elena M.D. PT Orders: PT CONSULT: s/p ortho surgery Precautions: Fall. Standard. Activity as tolerated. FWB as tolerated R leg. Patient Profile/Admitting Diagnosis: Pt is a 29-year-old female that presented to the ER following a low velocity fall while skiing [place] [employer]. She was diagnosed with a closed transverse and spinal fracture of the mid-tibial diaphysis through the distal metaphysis of the tibia and mildly displaced spiral fracture of the mid to distal tibia. Pt presents status post closed locked IMN on post operative day 2. PMHX: Unremarkable Social History/Home Situation: Pt is a senior net software developer that lives in a condo with her in [place], with three flights of stairs to enter. Railings on both sides of the stairs, however, notes that the stairs are wide. notes that they are able to stay with his parents on the first floor if necessary. Equipment Owned/DME: None Subjective: Patient and john are looking forward to going home today. Patietn states that she continues to have tolerable pain though the R LE that does not limit her from walking with crutches. Objective: General Observation: Manages bilateral axillary crutches well. Harry dressing with cast on R LE. Mental Status: alert and oriented x 4 Pain: 2/10 at rest and with mvovement. ROM: Right Upper Extremity: Shoulder Flexion WFL. Shoulder abduction WFL. Elbow flexion WFL. Wrist flexion WFL. Opening and closing of hand WFL. Left Upper Extremity: Shoulder Flexion WFL. Shoulder abduction WFL. Elbow flexion WFL. Wrist flexion WFL. Opening and closing of hand WFL. Right Lower Extremity: Hip flexion WFL. Hip abduction WFL. Knee flexion NT. Ankle dorsiflexion NT. Ankle plantarflexion NT. Left Lower Extremity: Hip flexion WFL. Hip abduction WFL. Knee flexion WFL. Ankle dorsiflexion WFL. Ankle plantarflexion WFL. Strength: Right Upper Extremity: Shoulder flexors 4+/5. Shoulder abductors 5/5. Elbow flexors 5/5. Elbow extensors 5/5. Assistant Passenger Locomotive Engineer strong. Left Upper Extremity: Shoulder flexors 4+/5. Shoulder abductors 5/5. Elbow flexors 5/5. Elbow extensors 5/5. Assistant Passenger Locomotive Engineer strong. Right Lower Extremity: Hip flexors 3-/5. Hip abductors 3-/5. Knee flexors 3-/5. Knee extensors 3-/5. Ankle dorsiflexors 3-/5. Ankle plantarflexors 3-/5. Left Lower Extremity: Hip flexors 5/5. Hip abductors 5/5. Knee flexors 5/5. Knee extensors 5/5. Ankle dorsiflexors 5/5. Ankle plantarflexors 5/5. Sensation: Intact as to pain and pressure on bilateral lower extremities. Bed Mobility/Transfers: Rolling independent Supine to sit independent Sit to supine independent Stand to sit independent Bed to chair independent Chair to bed independent Gait: Pt was able to ambulate 300 feet WBAT using a front-wheeled walker indepedently with bilateral axillary crutches . Balance: Static Sitting: Normal Dynamic Sitting: Normal Static Standing: Fair Dynamic Standing: Fair Special Tests: Mobility Limitations Standardized Measure [facility] AM-PAC 6 clicks Basic Mobility Inpatient Short Form: Raw Score: 24 CMS Score: 0% deficit Informed Consent/Education: Patient instructed in purpose of PT consult and plan of care. Assessment: Pt is a 29-year-old female that presented to the ER following a low velocity fall while skiing on [employer]. She was diagnosed with a closed transverse and spinal fracture of the mid-tibial diaphysis through the distal metaphysis of the tibia and mildly displaced spiral fracture of the mid to distal tibia. Pt presents status post closed locked IMN. She presents with impairment level findings with functional limitations. She initially appeared to be apprehensive about putting weight onto her R LE and gradually began to apply more weight as she gained confidence with walking with the axillary crutches. Patietn demosntrated significant functional mobility improvement during this episode of care. Supervision and assistance were provided for getting into and out of elevator and getting into [employer] jeep through the back. Patient presented with clinical signs and symptoms consistent with current/admitting diagnoses that have resulted to mobility limitations, gait instability, generalized weakness, and impairment of motor control as demonstrated by the following impairment level findings: 1. Decreased strength to R LE major muscle groups 2. Impaired standing balance 3. Impaired activity tolerance 4. Limitation of joint range of motion in R LE Impairments continue to contribute to the following functional limitations: 1. Inability to safely ambulate without assistive device and physical assistance 2. Increase completion time for mobility ADL performance 3. Increased fall risk 4. Inability to negotiate steps alone safely Goals: Goals X1 week 1. Supine-Sit independent MET 2. Sit-Supine independent MET 3. Sit-Stand independent MET 4. Stand-Sit independent MET 5. Bed-Chair independent MET 6. Chair-Bed independent MET 7. Independent gait on level surface with use of least restrictive device for at least 300 feet without report of pain nor dyspnea MET 8. Min A stair negotiation while holding onto unilateral rail and Min A by for at least 15 steps without report of increased pain nor dyspnea MET 9. Independent with home exercise program MET 10. Good static and dynamic standing balance/tolerance NOT MET DISCHARGE RECOMMENDATIONS: Discharge to home when medically cleared with recommendations for outpatient physical therapy for improved mobility, strength, and balance. Recommend use of bilateral axillary crutches for negotiation of stairs and front-wheeled walker for ambulation in the home. OP PT as needed. TREATMENT CODE/TIME: 97246 x 13 minutes beginning at 9:18 A.M. Thank you very much for this referral. Renetta Card PT, DPT, CLT [facility] [place], [place]
--- NOTE | 2019-08-25 17:56 | PDOC.CMDIS ---
- If Service Date Differs Date of service: 08/25/19 Time of Service: 17:56 LACE Index Scoring Tool - Questions: Length of Stay (in days): 3 Acuity (Admit via E.D.?): Yes E.D. Visits: 1 - Answers: Total Score: 7 Risk of Readmission: Low Risk Care Management Discharge Reason for Hospitalization: Fracture of the right tibia and fibula closed Discharge Plan: Bere is being discharged home and will return to [place] with her SO. She will return to her home town and follow up with Orthopedics in her area. Bere has a plan to manage pain, instructions and information related to her visit including imaging. Patient/Family Education Needs: Discharge education, limitations and follow up plan of care including ask me three and self management.
== END 2019-08-25 10:15 | disposition home or self-care (01) | DRG 494 ==
LOC: ER 19:11 → MS 20:10
PROVIDERS: Admitting Provider Orthopaedic Surgery; Emergency Provider Physician Assistant; Visit Provider Orthopaedic Surgery
PROC: 0QSG36Z Reposition Right Tibia with Intramedullary Internal Fixation Device, Percutaneous Approach (ICD-10-PCS; CPT 27756; principal; 2019-08-23 11:45)
DX: S82.241A Displaced spiral fracture of shaft of right tibia, initial encounter for closed fracture (principal); S82.441A Displaced spiral fracture of shaft of right fibula, initial encounter for closed fracture; V00.321A Fall from snow-skis, initial encounter; Y93.23 Activity, snow (alpine) (downhill) skiing, snowboarding, sledding, tobogganing and snow tubing; G89.18 Other acute postprocedural pain
CPT/HCPCS: 27756; 29505; 36415; 85027; 96374; 96375; 96376; 97162; 97530; 99285; NC; 73590; 73700; 81025; 99284; E0114; J0131; J0690; J1100; J1885; J2001; J2250; J2270; J2405; J2704; J3360; J7042; L4361